=== PATIENT | male | born 1990 | race Caucasian/White ===

== ENCOUNTER 2018-04-04 18:33 | Inpatient (IN) | payer MEDICAID, OTHER ==
[~2018-04-04] VITALS: Ht 177.8 cm; Wt 98.2 kg
[~2018-04-04 18:33] MED LIST: BENZ1TAB10 PO; DIVA500T52 PO; FOLI1 PO; MULT-1239 PO; OXCA300T28 PO; OXCA300T29 PO; QUET100T PO; QUET100T33 PO; QUET200T PO; QUET200T29 PO; SIMV-261 PO; THIA100T67 PO; TOPI25 PO; TRAZ-220 PO
[2018-04-04] MEDS ORDERED: LORazepam 2 MG/ML VIAL ONE (18:42)
[2018-04-04] MEDS ORDERED: HALOPERIDOL LACTATE 5 MG/ML VIAL ONE (18:42)
[2018-04-04] MEDS ORDERED: DiphenhydrAMINE HCL 50 MG/ML VIAL ONE (18:42)
[2018-04-04] MEDS ORDERED: HALOPERIDOL LACTATE 5 MG/ML VIAL IM ONE (18:45)
[2018-04-04] MEDS ORDERED: LORazepam 2 MG/ML VIAL IM ONE (18:45)
[2018-04-04] MEDS ORDERED: DiphenhydrAMINE HCL 50 MG/ML VIAL IM ONE (18:45)
[2018-04-04] MEDS ORDERED: LITH8SOL6 PO (19:12)
[2018-04-04 20:52] LABS: APPEARANCE,URINE CLOUDY (CLEAR); BILIRUBIN,URINE NEGATIVE (NEGATIVE); GLUCOSE, URINE (UA) NEGATIVE (NEGATIVE); KETONES,URINE 15 mg/dL (NEGATIVE); LEUKOCYTE ESTERASE ,URINE NEGATIVE (NEGATIVE); NITRATE,URINE NEGATIVE (NEGATIVE); OCCULT BLOOD,URINE NEGATIVE (NEGATIVE); PROTEIN,URINE TRACE (NEGATIVE)
[2018-04-04 20:58] LABS: AMPHET/METH SCREEN,URINE NEGATIVE (NEGATIVE); BARBITURATE SCREEN, URINE NEGATIVE (NEGATIVE); BENZODIAZEPINES SCREEN,URINE NEGATIVE (NEGATIVE); CANNABINOID SCREEN,URINE NEGATIVE (NEGATIVE); COCAINE SCREEN,URINE NEGATIVE (NEGATIVE); METHADONE SCREEN, URINE NEGATIVE (NEGATIVE); OPIATE SCREEN,URINE NEGATIVE (NEGATIVE)
[2018-04-04 21:00] LABS: PHENCYCLIDINE SCREEN,URINE NEGATIVE (NEGATIVE)
[2018-04-04 21:02] LABS: AMORPHOUS SEDIMENT,UR Moderate /LPF (None Seen); BACTERIA,URINE None Seen /HPF (None Seen); CALCIUM OXALATE CRYSTALS,UR Moderate /LPF (None Seen); RBC,URINE 0-2 /HPF (0-2); WBC,URINE None Seen /HPF (0-5)
[2018-04-04 21:37] LABS: BASOPHILS % (AUTO) 0.4 % (0.0-2.0); EOSINOPHILS % (AUTO) 0.1 % (1.0-6.0); HEMATOCRIT 40.6 % (41-53); HEMOGLOBIN 13.7 g/dL (13.5-17.5); LYMPHOCYTES # (AUTO) 1.6 K/uL (1.0-4.8); LYMPHOCYTES % (AUTO) 11.1 % (22.0-44.0); MEAN CORPUSCULAR HEMOGLOBIN 31.8 pg (26.0-34.0); MEAN CORPUSCULAR HGB CONC 33.7 G/dL (31.0-37.0); MEAN CORPUSCULAR VOLUME 94 fL (80-100); MONOCYTES % (AUTO) 7.1 % (2.0-9.0); NEUTROPHILS # (AUTO) 11.8 K/uL (1.8-7.7); NEUTROPHILS % (AUTO) 81.3 % (40.0-70.0); PLATELET COUNT (AUTO) 151 K/uL (150-450); RED CELL DISTRIBUTION WIDTH 13.3 % (11.5-14.5)
[2018-04-04 21:46] LABS: ANION GAP 12 mmol/L (8-16); CALCIUM, TOTAL 8.4 mg/dL (8.8-10.5); CARBON DIOXIDE 23 mmol/L (22-29); CHLORIDE 107 mmol/L (98-107); CREATININE 0.84 mg/dL (0.60-1.30); GLOMERULAR FILTR. RATE CALC > 60 mL/min (>60); GLUCOSE,RANDOM 98 mg/dL (70-110); POTASSIUM 3.7 mmol/L (3.5-5.1); SODIUM SERUM 142 mmol/L (136-145); UREA NITROGEN, BLOOD 12 mg/dL (7-18)
[2018-04-04 21:52] LABS: ALANINE AMINOTRANSFERASE 23 U/L (12-78); ALBUMIN 3.4 g/dL (3.4-5.0); ALKALINE PHOSPHATASE 37 U/L (46-116); ASPARTATE AMINOTRANSFERASE 19 U/L (15-37); BILIRUBIN,TOTAL 0.3 mg/dL (0.1-1.0); TOTAL PROTEIN, SERUM 6.4 g/dL (6.4-8.2)
[2018-04-05] MEDS: LORazepam 2 MG TABLET PO PRN (12:14)
[2018-04-05] MEDS: HALOPERIDOL 5 MG TABLET PO PRN (12:15)
[2018-04-05 19:27] VITALS: BP 131/96
[2018-04-05] MEDS ORDERED: IBUPROFEN 400 MG TABLET PO PRN (20:00)
[2018-04-05] MEDS ORDERED: ACETAMINOPHEN 325 MG TABLET PO PRN (20:00)
[2018-04-05] MEDS ORDERED: MAGNESIUM HYDROXIDE SUSPENSION 30 ML UDCUP PO PRN (20:00)
[2018-04-05] MEDS ORDERED: ALBUTEROL SULFATE HFA 90 MCG/PUFF 8 GM INHALER IH PRN (20:00)
[2018-04-05] MEDS ORDERED: DOCUSATE SODIUM 100 MG CAPSULE PO PRN (20:00)
[2018-04-05] MEDS ORDERED: ONDANSETRON HCL 4 MG TABLET PO PRN (20:00)
[2018-04-05] MEDS ORDERED: GuaiFENesin/D-METHORPHAN [SUGAR-FREE] 200-20MG/10 ML SYRUP UDCUP PO PRN (20:00)
[2018-04-05] MEDS ORDERED: NICOTINE 14 MG/24 HOUR PATCH TD PRN (20:00)
[2018-04-05] MEDS ORDERED: CloNIDine HCL 0.1 MG TABLET PO PRN (20:00)
[2018-04-05] MEDS ORDERED: PETROLATUM,WHITE 71 GM JELLY TP PRN (20:00)
[2018-04-05] MEDS ORDERED: MAG HYDROX/AL HYDROX/SIMETH ES 30 ML SUSPENSION UDCUP PO PRN (20:00)
[2018-04-05] MEDS ORDERED: LOPERAMIDE HCL 2 MG CAPSULE PO PRN (20:00)
[2018-04-06 07:51] LABS: BASOPHILS % (AUTO) 0.5 % (0.0-2.0); EOSINOPHILS % (AUTO) 1.1 % (1.0-6.0); HEMATOCRIT 42.1 % (41-53); HEMOGLOBIN 14.6 g/dL (13.5-17.5); LYMPHOCYTES # (AUTO) 1.3 K/uL (1.0-4.8); LYMPHOCYTES % (AUTO) 19.6 % (22.0-44.0); MEAN CORPUSCULAR HEMOGLOBIN 32.9 pg (26.0-34.0); MEAN CORPUSCULAR HGB CONC 34.7 G/dL (31.0-37.0); MEAN CORPUSCULAR VOLUME 95 fL (80-100); MONOCYTES # (AUTO) 0.7 K/uL (0.1-1.0); MONOCYTES % (AUTO) 11.1 % (2.0-9.0); NEUTROPHILS # (AUTO) 4.4 K/uL (1.8-7.7); NEUTROPHILS % (AUTO) 67.7 % (40.0-70.0); PLATELET COUNT (AUTO) 155 K/uL (150-450); RED BLOOD CELL COUNT(AUTO) 4.44 MIL/uL (4.50-5.90); RED CELL DISTRIBUTION WIDTH 13.2 % (11.5-14.5)
[2018-04-06 07:58] LABS: HEMOGLOBIN A1C 4.9 % (4.5-6.2)
[2018-04-06] MEDS: LORazepam 2 MG TABLET PO PRN ×2 (08:12→14:20)
[2018-04-06] MEDS: HALOPERIDOL 5 MG TABLET PO PRN ×2 (08:12→14:20)
[2018-04-06 08:17] LABS: ALANINE AMINOTRANSFERASE 27 U/L (12-78); ALBUMIN 3.6 g/dL (3.4-5.0); ALKALINE PHOSPHATASE 39 U/L (46-116); ANION GAP 7 mmol/L (8-16); ASPARTATE AMINOTRANSFERASE 27 U/L (15-37); BILIRUBIN,TOTAL 0.5 mg/dL (0.1-1.0); CALCIUM, TOTAL 8.2 mg/dL (8.8-10.5); CARBON DIOXIDE 25 mmol/L (22-29); CHLORIDE 109 mmol/L (98-107); CHOL/HDL RATIO 3.2 (4.2-7.3); CHOLESTEROL 124 mg/dL (131-200); CREATININE 0.87 mg/dL (0.60-1.30); GLOMERULAR FILTR. RATE CALC > 60 mL/min (>60); GLUCOSE,RANDOM 85 mg/dL (70-110); HDL CHOLESTEROL 39 mg/dL (40-60); LDL CHOL (CALC.) 71 mg/dL (0-130); POTASSIUM 3.7 mmol/L (3.5-5.1); SODIUM SERUM 141 mmol/L (136-145); THYROID STIMULATING HORMONE 3.31 uIU/mL (0.36-3.74); TOTAL PROTEIN, SERUM 6.7 g/dL (6.4-8.2); TRIGLYCERIDES 72 mg/dL (15-150); UREA NITROGEN, BLOOD 12 mg/dL (7-18)
[2018-04-06 10:06] VITALS: BP 121/80
[2018-04-06] MEDS ORDERED: DiphenhydrAMINE HCL 50 MG/ML VIAL IM ONE (14:45)
[2018-04-06] MEDS ORDERED: LORazepam 2 MG/ML VIAL IM ONE (14:45)
[2018-04-06] MEDS ORDERED: HALOPERIDOL LACTATE 5 MG/ML VIAL IM ONE (14:45)
[2018-04-06 20:22] VITALS: BP 115/84
[2018-04-06] MEDS: DIVALPROEX SODIUM 500 MG ER TABLET PO SCH (20:31)
[2018-04-06] MEDS: RisperiDONE 2 MG TABLET PO SCH (20:31)
[2018-04-07] MEDS: HALOPERIDOL 5 MG TABLET PO PRN ×3 (08:01→20:55)
[2018-04-07] MEDS: LORazepam 2 MG TABLET PO PRN ×2 (08:01→16:03)
[2018-04-07] MEDS: RisperiDONE 2 MG TABLET PO SCH ×2 (08:01→20:56)
[2018-04-07 08:05] VITALS: BP 140/89
[2018-04-07 18:10] VITALS: BP 138/89
[2018-04-07] MEDS: DIVALPROEX SODIUM 500 MG ER TABLET PO SCH (20:55)
[2018-04-07] MEDS: ZOLPIDEM TARTRATE 10 MG TABLET PO PRN (20:56)
[2018-04-08] MEDS: LORazepam 2 MG TABLET PO PRN ×2 (08:08→18:03)
[2018-04-08] MEDS: HALOPERIDOL 5 MG TABLET PO PRN ×2 (08:08→18:03)
[2018-04-08] MEDS: RisperiDONE 2 MG TABLET PO SCH (08:08)
[2018-04-08 08:27] VITALS: BP 114/72
[2018-04-08] MEDS ORDERED: HALOPERIDOL LACTATE 5 MG/ML VIAL ONE (09:52)
[2018-04-08] MEDS ORDERED: DiphenhydrAMINE HCL 50 MG/ML VIAL ONE (09:52)
[2018-04-08] MEDS ORDERED: LORazepam 2 MG/ML VIAL IM ONE (10:00)
[2018-04-08] MEDS ORDERED: HALOPERIDOL LACTATE 5 MG/ML VIAL IM ONE (10:00)
[2018-04-08] MEDS ORDERED: DiphenhydrAMINE HCL 50 MG/ML VIAL IM ONE (10:00)
[2018-04-08 17:55] VITALS: BP 137/78
[2018-04-08 18:03] VITALS: BP 118/76
[2018-04-08] MEDS: DIVALPROEX SODIUM 500 MG ER TABLET PO SCH (20:54)
[2018-04-08] MEDS: RisperiDONE 3 MG TABLET PO SCH (20:55)
[2018-04-08] MEDS: ZOLPIDEM TARTRATE 10 MG TABLET PO PRN (20:55)
[2018-04-09] MEDS: HALOPERIDOL 5 MG TABLET PO PRN ×2 (08:08→16:11)
[2018-04-09] MEDS: LORazepam 2 MG TABLET PO PRN ×2 (08:08→16:11)
[2018-04-09] MEDS: RisperiDONE 3 MG TABLET PO SCH ×2 (08:08→22:00)
[2018-04-09 16:23] VITALS: BP 116/79
[2018-04-09] MEDS ORDERED: DiphenhydrAMINE HCL 50 MG/ML VIAL IM ONE (18:15)
[2018-04-09] MEDS ORDERED: LORazepam 2 MG/ML VIAL IM ONE (18:15)
[2018-04-09] MEDS ORDERED: HALOPERIDOL LACTATE 5 MG/ML VIAL IM ONE (18:15)
[2018-04-09] MEDS ORDERED: LORazepam 2 MG/ML VIAL ONE (18:20)
[2018-04-09] MEDS ORDERED: DiphenhydrAMINE HCL 50 MG/ML VIAL ONE (18:20)
[2018-04-09] MEDS ORDERED: HALOPERIDOL LACTATE 5 MG/ML VIAL ONE (18:20)
[2018-04-09] MEDS: DIVALPROEX SODIUM 500 MG ER TABLET PO SCH (22:00)
[2018-04-10] MEDS: RisperiDONE 3 MG TABLET PO SCH ×2 (09:11→21:38)
[2018-04-10] MEDS: HALOPERIDOL 5 MG TABLET PO PRN (09:11)
[2018-04-10] MEDS: LORazepam 2 MG TABLET PO PRN (09:11)
[2018-04-10 10:16] VITALS: BP 119/88
[2018-04-10] MEDS ORDERED: DiphenhydrAMINE HCL 50 MG/ML VIAL ONE (15:20)
[2018-04-10] MEDS ORDERED: HALOPERIDOL LACTATE 5 MG/ML VIAL ONE (15:20)
[2018-04-10] MEDS ORDERED: LORazepam 2 MG/ML VIAL ONE (15:20)
[2018-04-10] MEDS ORDERED: DiphenhydrAMINE HCL 50 MG/ML VIAL IM ONE (15:30)
[2018-04-10] MEDS ORDERED: LORazepam 2 MG/ML VIAL IM ONE (15:30)
[2018-04-10] MEDS ORDERED: HALOPERIDOL LACTATE 5 MG/ML VIAL IM ONE (15:30)
[2018-04-10 17:09] VITALS: BP 134/87
[2018-04-10] MEDS: DIVALPROEX SODIUM 500 MG ER TABLET PO SCH (21:38)
[2018-04-11] MEDS: LORazepam 2 MG TABLET PO PRN ×3 (02:52→23:38)
[2018-04-11] MEDS: ZOLPIDEM TARTRATE 10 MG TABLET PO PRN ×2 (02:52→23:38)
[2018-04-11 08:32] VITALS: BP 124/73
[2018-04-11] MEDS: RisperiDONE 3 MG TABLET PO SCH ×2 (09:28→20:35)
[2018-04-11] MEDS: HALOPERIDOL 5 MG TABLET PO PRN (09:28)
[2018-04-11 18:22] VITALS: BP 112/73
[2018-04-11] MEDS: DIVALPROEX SODIUM 500 MG ER TABLET PO SCH (20:35)
[2018-04-12 08:54] VITALS: BP 113/68
[2018-04-12] MEDS: RisperiDONE 3 MG TABLET PO SCH ×2 (09:03→20:26)
[2018-04-12] MEDS: LORazepam 2 MG TABLET PO PRN ×2 (09:03→15:40)
[2018-04-12] MEDS: HALOPERIDOL 5 MG TABLET PO PRN (09:03)
[2018-04-12 16:40] VITALS: BP 115/80
[2018-04-12] MEDS: DIVALPROEX SODIUM 500 MG ER TABLET PO SCH (20:26)
[2018-04-12] MEDS: ZOLPIDEM TARTRATE 10 MG TABLET PO PRN (21:36)
[2018-04-13] MEDS: HALOPERIDOL 5 MG TABLET PO PRN (08:08)
[2018-04-13] MEDS: RisperiDONE 3 MG TABLET PO SCH ×2 (08:08→20:23)
[2018-04-13] MEDS: LORazepam 2 MG TABLET PO PRN ×2 (08:08→18:51)
[2018-04-13 10:57] VITALS: BP 118/78
[2018-04-13 16:16] VITALS: BP 118/78
[2018-04-13] MEDS ORDERED: DIVALPROEX SODIUM 500 MG ER TABLET PO SCH (21:00)
[2018-04-14 08:42] VITALS: BP 121/88
[2018-04-14] MEDS: LORazepam 2 MG TABLET PO PRN (08:53)
[2018-04-14] MEDS: RisperiDONE 3 MG TABLET PO SCH (08:54)
[2018-04-14] MEDS: HALOPERIDOL 5 MG TABLET PO PRN (08:54)
[2018-04-14] MEDS ORDERED: RISP3 PO ×2 (11:29→12:36)
[2018-04-14] MEDS ORDERED: DIVA500T52 PO (12:36)
== END 2018-04-14 19:47 | disposition home or self-care (01) | DRG 750 ==
LOC: EMS 18:34 → 3EC 04-05 17:43
DX: F25.0 Schizoaffective disorder, bipolar type (principal); F70 Mild intellectual disabilities; D64.9 Anemia, unspecified; E03.9 Hypothyroidism, unspecified; E78.00 Pure hypercholesterolemia, unspecified; S01.81XA Laceration without foreign body of other part of head, initial encounter; E78.5 Hyperlipidemia, unspecified; F17.200 Nicotine dependence, unspecified, uncomplicated; G40.909 Epilepsy, unspecified, not intractable, without status epilepticus; I10 Essential (primary) hypertension; X58.XXXA Exposure to other specified factors, initial encounter; J45.909 Unspecified asthma, uncomplicated; Z79.899 Other long term (current) drug therapy; Z91.5 Personal history of self-harm; Z88.1 Allergy status to other antibiotic agents; Y93.89 Activity, other specified; Y92.89 Other specified places as the place of occurrence of the external cause; Y99.8 Other external cause status; Z71.6 Tobacco abuse counseling; Z23 Encounter for immunization
CPT/HCPCS: 83036; 84443; 90686; G0480; J1200; J1630; J2060